=== PATIENT | female | born 1975 | race Two or more races ===

== ENCOUNTER 2017-03-05 18:55 | Emergency (ER) | payer OTHER ==
[~2017-03-05] VITALS: Ht 160 cm; Wt 64.9 kg
[2017-03-05 19:05] VITALS: BP 112/71
--- NOTE | 2017-03-05 19:09 | PHYS DOC ---
General Chief Complaint: MEDICATION REFILL Stated Complaint: MED REFIL Time Seen by MD: 18:57 Source: patient, old records Exam Limitations: no limitations Problems: History of Present Illness Initial Comments Pt is 41/F to ED requesting plavix refill. 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 Follows at [facility], has not requested refills of plavix and has run out of her med. Pt is here requesting plavix refill fearing another TIA. Denies any acute symptoms. Timing/Duration: other Severity: mild Modifying Factors: improves with other Associated Symptoms: denies symptoms Allergies: Coded Allergies: aspirin (Verified Allergy, Severe, Anaphylaxis, 01/03/17) Past Medical History Medical History: other (TIA, hypothyroid) Surgical History: noncontributory Social History Smoker: non-smoker Alcohol: none Drugs: none Review of Systems Constitutional: denies chills, denies fever Respiratory: denies cough, denies shortness of breath Cardiovascular: denies chest pain, denies palpitations Gastrointestinal: denies nausea, denies vomiting Genitourinary: denies dysuria, denies frequency Musculoskeletal: denies back pain, denies joint swelling Psychiatric/Neurological: see HPI Physical Exam General Appearance: WD/WN, no apparent distress Ear, Nose, Throat: hearing grossly normal, normal ENT inspection Neck: non-tender, supple Respiratory: normal breath sounds, no respiratory distress Cardiovascular: normal peripheral pulses, regular rate, rhythm Back: no CVA tenderness, no vertebral tenderness Extremities: non-tender, normal inspection Neurologic/Psychiatric: psychologist private practice II-XII nml as tested, alert, normal mood/affect, oriented x 3 Skin: normal color, warm/dry Orders, Labs, Meds Pt advised routinely meds not refilled in ED. Will do this time, encouraged vigilant med refill maintenance. Departure Time of Disposition: 19:04 Disposition: 01 HOME, SELF-CARE Diagnosis: medication refill (plavix), h/o CVA Condition: GOOD Patient Instructions: Medication Refill, Emergency Department Additional Instructions: Refills must be obtained from your specialist or primary care physician. Each physician office has different policies and procedures for obtaining routine medication refills. Contact your prescribing doctors with plenty of notice moving forward to ensure refills are available to you when you need them. Rx: plavix 75mg #3 Must follow up with your doctor (Lexy) this week for recheck and refills. Return to ED with new or changing symptoms. VINAY PEARSON DO March 05, 2017 19:09
== END 2017-03-05 19:35 | disposition home or self-care (01) ==
LOC: ER 19:02
DX: Z76.0 Encounter for issue of repeat prescription (principal); E03.9 Hypothyroidism, unspecified; Z86.73 Personal history of transient ischemic attack (TIA), and cerebral infarction without residual deficits; Z88.6 Allergy status to analgesic agent
CPT/HCPCS: 99283